=== PATIENT | female | born 1950 | race Two or more races ===

== ENCOUNTER 2025-06-26 21:41 | Emergency (ER) | payer MEDICAID ==
[~2025-06-26] VITALS: Ht 152.4 cm; Wt 73.0 kg
--- NOTE | 2025-06-26 23:53 | DVH ---
RIGHT Upper Extremity Venous Duplex CLINICAL HISTORY: Right upper extremity pain/right neck pain COMPARISON: US BI LAT UPPER DVT on DOS: 09/20/24 TECHNIQUE: Duplex Doppler evaluation of the venous system of the RIGHT lower neck and upper extremity including color Doppler and spectral/pulsed waveform analysis was performed. FINDINGS: The internal jugular vein demonstrates appropriate compressibility and waveform variability. The subclavian vein is patent on color Doppler evaluation without intraluminal thrombus and demonstrates waveform variability. The visualized portion of the brachiocephalic vein is patent on color Doppler evaluation without intraluminal thrombus and demonstrates waveform variability. The axillary vein demonstrates appropriate compressibility and waveform variability. The brachial veins demonstrate appropriate compressibility and patency on Doppler evaluation. The basilic vein demonstrates appropriate compressibility and patency on Doppler evaluation. The cephalic vein demonstrates appropriate compressibility and patency on Doppler evaluation. IMPRESSION: No venous thrombus identified in the RIGHT upper extremity vessels evaluated above.
[2025-06-27] MEDS ORDERED: ACE3T PO
--- NOTE | 2025-06-27 | ED.PDOC ---
Back pain HPI HPI Comments 74-year-old female presents to ER with complaints of neck pain x4 days. Patient reports she started experiencing right-sided neck pain four days ago, denying any trauma/injury. She rates her current pain a 9/10 to right side of neck with intermittent radiation down right arm. Notes that she has been using Salonpas patches on her neck without improvement and presents to ER ambulatory on arrival, with steady gait, in no distress. 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 States she is following up with her PCP with regards to her symptoms tomorrow. 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), High Lipids Past Medical History (Other): DVT Surgical History: Cholecystectomy CERTIFIED RETINAL ANGIOGRAPHER History: No Pertinent CERTIFIED RETINAL ANGIOGRAPHER History Family History Family History: Unknown Social History Smoker: Non-Smoker Alcohol: Denies ETOH Use Drugs: Denies Drug Use Lives In: Home Constitutional: denies: chills, diaphoresis, fatigue, fever, malaise, sweats, weakness, others EENTM: denies: blurred vision, double vision, ear bleeding, ear discharge, ear drainage, ear pain, ear ringing, eye pain, eye redness, hearing loss, mouth pain, mouth swelling, nasal discharge, nose bleeding, nose congestion, nose pain, photophobia, tearing, throat pain, throat swelling, voice changes, others Respiratory: denies: cough, hemoptysis, orthopnea, SOB at rest, shortness of breath, SOB with excertion, stridor, wheezing, others Cardiovascular: denies: chest pain, dizzy spells, diaphoresis, Dyspnea on exertion, edema, irregular heart beat, left arm pain, lightheadedness, palpitations, PND, syncope, others Gastrointestinal: denies: abdomen distended, abdominal pain, blood streaked bowels, constipated, diarrhea, dysphagia, difficulty swallowing, hematemesis, melena, nausea, poor appetite, poor fluid intake, rectal bleeding, rectal pain, vomiting, others Genitourinary: denies: abnormal vagina bleeding, burning, dyspareunia, dysuria, flank pain, frequency, hematuria, incontinence, pain, , vagina discharge, urgency, others Neurological: denies: dizziness, fainting, headache, left sided numbness, left sided weakness, numbness, paresthesia, pre-existing deficit, right sided numbness, right sided weakness, seizure, speech problems, tingling, tremors, weakness, others Musculoskeletal: reports: others (As stated in HPI) Integumetry: denies: bruises, change in color, change in hair/nails, dryness, laceration, lesions, lumps, rash, wounds, others Allergic/Immunocompromised: denies: Difficulty Healing, Frequent Infections, Hives, Itching, others Hematologic/Lymphatic: denies: anemia, blood clots, easy bleeding, easy bruising, swollen glands, others Endocrine: denies: excessive hunger, excessive sweating, excessive thirst, excessive urination, flushing, intolerance to cold, intolerance to heat, unexplained weight gain, unexplained weight loss, others Psychiatric: denies: anxiety, bipolar disorder, depression, hopeless, panic disorder, schizophrenia, sleepless, suicidal, others Physical Exam General Appearance: No Apparent Distress HEENT: Normal ENT Inspection, PERRL/EOMI, Pharynx Normal, TMs Normal Neck: Full Range of Motion, Other (TTP to right cervical paraspinals noted. No appreciable erythema/swelling or overlying skin changes noted) Respiratory: Chest Non-Tender, Lungs Clear, No Accessory Muscle Use, No Respiratory Distress, Normal Breath Sounds Cardiovascular: No Murmur, No Gallop, Regular Rate/Rhythm Breast Exam: Deferred Gastrointestinal: NOT DONE Genitalia: Deferred Pelvic: Deferred Rectal: Deferred Extremities: Normal capillary refill, Normal range of motion Neurologic: Alert, No Motor Deficits, Normal Affect, Normal Mood, No Sensory Deficits Cerebellar Function: Normal Reflexes: Normal Skin: Dry, Normal Color, Warm Peripheral Pulses: 2+ carotid (R), 2+ carotid (L), 2+ Radial (R), 2+ Radial (L), 2+ Brachial (R), 2+ Brachial (L) Lymphatic: No Adenopathy Was a procedure done? Was a procedure done?: No Sedation Sedation?: No Back Pain Differential Dx Differential Diagnosis: Fracture, Other (Mass, DVT, neurovascular injury) X-Ray, Labs, Meds, VS Vital Signs Date Time Temp Pulse Resp B/P (MAP) Pulse Ox O2 Delivery O2 Flow Rate FiO2 06/27/25 00:22 89 18 06/27/25 00:22 97.7 89 18 141/85 (103) 95 97.7 06/26/25 21:43 97.9 93 19 152/86 96 97.9 Current Medications Medications (Trade) Dose Ordered Sig/Sukhdeep Route Start Time Stop Time Status Last Admin Acetaminophen/ Hydrocodone Bitart ([place] 5/325MG Tab) 1 tab ONCE ONCE PO 06/27/25 00:00 06/27/25 00:01 DC 06/27/25 00:15 Ondansetron HCl (Zofran Po) 4 mg ONCE ONCE PO 06/27/25 00:00 06/27/25 00:01 DC 06/27/25 00:15 PATIENT: RHONDA CERDA AACCT: [id number]: [id number] : 1950 LOC: ER ROOM / BED: / AGE / SEX: 74 / F ADM STATUS: REG ER SERVICE 54 ORDERING PHYSICIAN: JADEN DIETZ PROCEDURE(s): RUDVT - Rt Upper DVT REASON: Right upper extremity pain/right neck pain ORDER NUMBER(s): [id number], ACCESSION NUMBER(s): [id number] RIGHT Upper Extremity Venous Duplex CLINICAL HISTORY: Right upper extremity pain/right neck pain COMPARISON: US BI LAT UPPER DVT on DOS: 09/20/24 TECHNIQUE: Duplex Doppler evaluation of the venous system of the RIGHT lower neck and upper extremity including color Doppler and spectral/pulsed waveform analysis was performed. FINDINGS: The internal jugular vein demonstrates appropriate compressibility and waveform variability. The subclavian vein is patent on color Doppler evaluation without intraluminal thrombus and demonstrates waveform variability. The visualized portion of the brachiocephalic vein is patent on color Doppler evaluation without intraluminal thrombus and demonstrates waveform variability. The axillary vein demonstrates appropriate compressibility and waveform variability. The brachial veins demonstrate appropriate compressibility and patency on Doppler evaluation. The basilic vein demonstrates appropriate compressibility and patency on Doppler evaluation. The cephalic vein demonstrates appropriate compressibility and patency on Doppler evaluation. IMPRESSION: No venous thrombus identified in the RIGHT upper extremity vessels evaluated above. ATED BY: THEO GAMING MD DICTATED DATE/TIME: 06/26/252349 SIGNED BY: THEO GAMING MD SIGNED DATE/TIME: 06/26/252349 CC: PATIENT: RHONDA CERDA AACCT: [id number] UNIT: [id number] : 1950 LOC: ER ROOM / BED: / AGE / SEX: 74 / F ADM STATUS: [facility] ER SERVICE 48 ORDERING PHYSICIAN: JADEN DIETZ PROCEDURE(s): NKICT - NECK WITHOUT CONTRAST REASON: right sided neck pain ORDER NUMBER(s): [id number], ACCESSION NUMBER(s): [id number] EXAM: CT NECK WITHOUT CONTRAST INDICATION: right sided neck pain Exam Date: 06/26/2025 11:54 PM COMPARISON: US CAROTID DUPLX W COLOR DOP on DOS: 04/12/25, US CAROTID DUPLX W COLOR DOP on DOS: 03/27/25 TECHNIQUE: CT of the neck without h intravenous contrast. RADIATION DOSE: CTDIvol: 22.14 mGy, DLP: 631.83 mGy*cm FINDINGS: There is no evidence of cervical mass lesion, pathologically enlarged lymph nodes or fluid collection. The fat planes of the neck appear intact. The airway and larynx are unremarkable. The parotid, submandibular and thyroid glands are unremarkable. The vascular structures of the neck appear patent. The visualized lung apices are clear. The limited visualized portions of the brain are unremarkable. The osseous structures are unremarkable. IMPRESSION: No clear cause for symptoms. ATED BY: THEO GAMING MD DICTATED DATE/TIME: 06/27/25 0029 SIGNED BY: THEO GAMING MD SIGNED DATE/TIME: 06/27/25 0029 CC: Right upper extremity DVT ultrasound reviewed CT neck without contrast reviewed [place] 5/325 mg p.o. ordered Zofran 4 mg p.o. ordered Patient neurovascularly intact and reported improvement in symptoms prior to discharge Advised on rest/ no strenuous activity Advised to follow up with PCP in 1-2 days Patient verbalized understanding and agreeable with current plan of care Advised to return to ER immediately if symptoms worsen Images Reviewed?: Images reviewed and evaluated by me Time of 1ST Reevaluation: 23:24 Reevaluation 1ST: N/A Patient Education/Counseling: Diagnosis, Treatment, Prognosis, Need For Follow Up Family Education/Counseling: No Family Present SEPSIS Sepsis Screen Date sepsis recognized/suspect: Jun 26, 2025 Time Sepsis recognized/suspect: 2145 Recent Procedure: No On Antibiotic Therapy: No Respiratory Rate >20: No Heart Rate >90: No Temp<36 C (96.8 F) or >38.3 C: No SBP <90 or MAP <65 mmHG: No New Acute Mental Status Change: No Is the patient on CPAP, BIPAP,: No Physician Orders Rt Upper Dvt (06/26/25 21:55) Neck Without Contrast (06/26/25 23:49) Vital Signs Date Time Temp Pulse Resp B/P (MAP) Pulse Ox O2 Delivery O2 Flow Rate FiO2 06/27/25 00:22 89 18 06/27/25 00:22 97.7 89 18 141/85 (103) 95 97.7 06/26/25 21:43 97.9 93 19 152/86 96 97.9 Medications Medications Dose Ordered Sig/Sukhdeep Route Start Time Stop Time Status Last Admin Dose Admin Acetaminophen/ Hydrocodone Bitart 1 tab ONCE ONCE PO 06/27/25 00:00 06/27/25 00:01 DC 06/27/25 00:15 Ondansetron HCl 4 mg ONCE ONCE PO 06/27/25 00:00 06/27/25 00:01 DC 06/27/25 00:15 Departure 1 Departure Time of Disposition: 23:58 Impression: Primary Impression: Cervical strain Qualified Codes: S16.1XXA - Strain of muscle, fascia and tendon at neck level, initial encounter Disposition: HOME / SELF CARE / HOMELESS Condition: Stable e-Prescriptions Acetaminophen W/ Codeine (Tylenol W/Cod #3) 1 Tab Tb 1 TAB PO Q6HPRN, #10 TAB 0 Refills Prov: JADEN DIETZ 06/27/25 Discharged With: Other (Son) Critical Care Note Critical Care Time?: No Stability Stability form required: No Heart Score Heart Score: Heart Score Response (Comments) Value History N/A 0 EKG N/A 0 Age N/A 0 Risk Factors N/A 0 Troponin N/A 0 Total 0 JADEN DIETZ Jun 27, 2025 00:00
[2025-06-27] MEDS: HYDROcodone-ACET 5/325MG TAB PO ONE (00:15)
[2025-06-27] MEDS: ONDANSETRON ODT 4 MG TAB PO ONE (00:15)
[2025-06-27 00:22] VITALS: BP 141/85; PULSE 89; RESP 18; TEMP 97.7; O2SAT 95
--- NOTE | 2025-06-27 00:32 | DVH ---
EXAM: CT NECK WITHOUT CONTRAST INDICATION: right sided neck pain Exam Date: 06/26/2025 11:54 PM COMPARISON: US CAROTID DUPLX W COLOR DOP on DOS: 04/12/25, US CAROTID DUPLX W COLOR DOP on DOS: 03/27/25 TECHNIQUE: CT of the neck without h intravenous contrast. RADIATION DOSE: CTDIvol: 22.14 mGy, DLP: 631.83 mGy*cm FINDINGS: There is no evidence of cervical mass lesion, pathologically enlarged lymph nodes or fluid collection. The fat planes of the neck appear intact. The airway and larynx are unremarkable. The parotid, submandibular and thyroid glands are unremarkable. The vascular structures of the neck appear patent. The visualized lung apices are clear. The limited visualized portions of the brain are unremarkable. The osseous structures are unremarkable. IMPRESSION: No clear cause for symptoms.
== END 2025-06-27 00:34 | disposition home or self-care (01) ==
LOC: ER 21:41
DX: S16.1XXA Strain of muscle, fascia and tendon at neck level, initial encounter (principal); M19.90 Unspecified osteoarthritis, unspecified site; Z90.49 Acquired absence of other specified parts of digestive tract; Z86.718 Personal history of other venous thrombosis and embolism; Z79.01 Long term (current) use of anticoagulants; X58.XXXA Exposure to other specified factors, initial encounter; Y93.89 Activity, other specified; Y92.89 Other specified places as the place of occurrence of the external cause; Y99.8 Other external cause status
CPT/HCPCS: 70490; 93971; 99284; Q0162